=== PATIENT | male | born 1955 | race Caucasian/White ===

== ENCOUNTER 2017-10-28 05:25 | Day surgery (SDC) | payer BC ==
[~2017-10-28] VITALS: Ht 185.4 cm; Wt 95.7 kg
--- NOTE | ~2017-10-28 | O ---
[facility] [address] [place] [address] OPERATIVE REPORT Name: ALISHA HORVATH Room #: DEP [facility].#: [id number] Admission: 10/28/17 Attend Phys: Juan David Valdez MD Discharge: 10/29/17 Date of : 59 Report #: [id number] THIS REPORT FOR: //name// CC: Juan David Vivasmelissa Hilliard DATE OF SERVICE: 10/28/2017 PREOPERATIVE DIAGNOSIS: Complex comminuted fractures, left knee medial and lateral tibial plateau. POSTOPERATIVE DIAGNOSIS: Complex comminuted fractures, left knee medial and lateral tibial plateau. PROCEDURE: Open reduction and internal fixation, left knee tibial plateau fracture. SURGEON: Juan David Valdez MD INDICATIONS: This 62-year-old gentleman stumbled awkwardly several days ago landing hard on the left knee. X-rays and CT scan reveal badly comminuted fractures of both the medial and lateral tibial plateaus. The more significant injury is the posterior medial plateau, which is completely displaced and unstable. There is more central comminution in the mid portion and extending out toward the mid lateral portion of the tibial plateau as well. 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 Eventually, I suspect total knee replacement may be the ultimate outcome. At this point, we have agreed that trying to improve alignment and stability with the addition of subchondral bone grafting is the best option. DESCRIPTION OF PROCEDURE: The patient was taken to the operating room where he was placed under general anesthesia. Prophylactic intravenous antibiotics were administered. The left knee and leg were meticulously prepped and draped and a thigh tourniquet inflated to 300 mmHg. A medial skin incision was made extending from the joint line down distally along the medial border of the tibia. This was carried through fascia and muscle to expose the medial and posteromedial aspect of the tibia. This area was rather significantly comminuted with particularly depressed, unstable posterior medial fragment. This was cleaned and irrigated and tipped out medially, so that I could visualize the tibial metaphysis and the subchondral region, there was marked comminution and multiple fragments, which were depressed and rotated. These were realigned as best I could and elevated in a more normal fashion. This left a moderate sized defect in the metaphyseal region. There was also some depression extending out along the lateral mid weightbearing surface. This was more difficult to address, but I did elevate this somewhat as well. I also made [facility] [address] [place] [address] OPERATIVE REPORT Name: ALISHA HORVATH Room #: DEP SD Claudio#: [id number] Admission: 10/28/17 Attend Phys: Juan David Valdez MD Discharge: 10/29/17 Date of : 59 Report #: [id number] a small incision at the anterior lateral aspect where I could create a small drill hole window in the cortex and then tamped the subchondral bone back up into better position. Once satisfactory alignment had been established, a bone graft including BMP and 30 mL of cancellous chips were then prepared, mixed and packed into the defect in the metaphyseal region below the subchondral bone, this was gently packed into place allowing some support and elevation of the periarticular subchondral fragments. Once the bone graft had been positioned, a medial buttress plate was placed, positioning this as far posteriorly as possible to engage the rather large displaced fragment in this region. There was some comminution involving both vertical and horizontal fracture line, which made fixation difficult. Nevertheless, the joint surface came back in much better position and the plate and screws seemed to hold this in a satisfactory fashion. The screws beneath the articular surface were passed all the way across toward the lateral aspect and their position was checked with a C-arm. This seemed to improve stability in the lateral articular surface as well. Once the screws had been placed and the bone graft had been positioned, the overall alignment and stability certainly looked much improved. There was still obvious joint surface irregularity, particularly in the mid weightbearing portion of the lateral compartment; however, this seemed much improved when compared with the preoperative condition. There was also some posterior offset of the posterior medial aspect of the tibia, which is difficult to control or reduce. Overall; however, the alignment appears to be much improved and I believe probably will result in satisfactory healing and certainly improved knee function. The tourniquet was deflated after a total tourniquet time of 90 minutes. Good hemostasis was established. The wound was copiously irrigated. The fascia was closed with multiple #1 Vicryl sutures. The subcutaneous tissues were closed with 0 Monocryl. The skin was closed with skin negra. A sterile dressing was applied with a plaster splint holding the knee in neutral position. The patient was then awakened and returned to recovery room in good condition. <ELECTRONICALLY SIGNED> By: Juan David Valdez MD 10/31/17 [id number] 1730 Juan David Valdez MD /nt
[~2017-10-28 05:25] MED LIST: HYDROCODONE-AP1 EAC6 PO; LUPRON DEPOT11.25 MG IM; LUPRON DEPOT3.75 MG IM; TYLENOL325 MG PO
[2017-10-28 09:50] VITALS: BP 146/82
[2017-10-28 20:15] VITALS: BP 99/74
[2017-10-29 00:05] VITALS: BP 112/60
[2017-10-29 04:16] VITALS: BP 104/69
[2017-10-29 07:33] VITALS: BP 120/74
[2017-10-29 11:21] VITALS: BP 120/74
[2017-10-29 15:50] VITALS: BP 120/74
== END 2017-10-29 15:52 | disposition home or self-care (01) ==
LOC: OR 05:25 → TBA 05:25 → 4N 05:25 → TBA 05:26 → OR 09:42 → 4N 16:00 → OR 10-29 15:52
DX: S82.142A Displaced bicondylar fracture of left tibia, initial encounter for closed fracture (principal); X58.XXXA Exposure to other specified factors, initial encounter; Y93.89 Activity, other specified; Y92.89 Other specified places as the place of occurrence of the external cause; Y99.8 Other external cause status; Z79.891 Long term (current) use of opiate analgesic; Z85.46 Personal history of malignant neoplasm of prostate
CPT/HCPCS: 50010; 50101; 50386; 50782; 51412; 51439; 51742; 55430; 56525; 56667; 57091; 62110; 62900; 70005